=== PATIENT | female | born 1980 | race Caucasian/White ===

== ENCOUNTER 2018-05-20 13:51 | Outpatient (CLI) | payer MEDICAID ==
[2018-05-20 14:39] LABS: UR BACTERIA FEW /HPF (NONE SEEN); UR RBC 1 /HPF (0-5); UR SQUAMOUS EPITHELIAL CELL MODERATE /HPF (FEW); UR WBC 3 /HPF (0-5)
[2018-05-20 14:59] LABS: ADD UMIC YES; UR ASCORBIC ACID NEGATIVE (NEGATIVE); UR BILIRUBIN (Dip) NEGATIVE (NEGATIVE); UR BLOOD (Dip) NEGATIVE (NEGATIVE); UR CLARITY SLIGHTLY CLOUDY (CLEAR); UR COLOR YELLOW (YELLOW); UR GLUCOSE (Dip) NEGATIVE (NEGATIVE); UR KETONES (Dip) NEGATIVE (NEGATIVE); UR LEUKOCYTE ESTERASE (Dip) TRACE Leu/ul (NEGATIVE); UR NITRITE (Dip) NEGATIVE (NEGATIVE); UR SPECIFIC GRAVITY (Dip) 1.006 (1.003-1.030); UR TOTAL PROTEIN (Dip) NEGATIVE (NEGATIVE); UR UROBILINOGEN (Dip) NEGATIVE (NEGATIVE)
[2018-05-20 15:12] LABS: ADD MAN DIFF? NO
[2018-05-20 15:19] LABS: WHITE BLOOD COUNT 5.6 10^3/ul (4.8-10.8)
[2018-05-20 15:19] LABS: BASOPHILS % 0.7 % (0.0-2.0); EOSINOPHILS % 0.4 % (0.0-7.0); HEMATOCRIT 36.6 % (37.0-47.0); HEMOGLOBIN 12.4 g/dl (12.0-16.0); LYMPHOCYTES # 0.8 10^3/ul (0.8-2.9); LYMPHOCYTES % 14.2 % (15.0-51.0); MEAN CORPUSCULAR HGB CONC 33.9 g/dl (32.0-37.0); MEAN CORPUSCULAR VOLUME 91.5 fl (82.0-101.0); MEAN PLATELET VOLUME 10.5 fl (7.4-10.4); MONOCYTE # 0.5 10^3/ul (0.3-0.9); MONOCYTES % 8.9 % (0.0-11.0); NEUTROPHIL # 4.2 10^3/ul (1.6-7.5); NEUTROPHILS % 74.6 % (39.0-77.0); PLATELET COUNT 209 10^3/UL (140-415); RED CELL DISTRIBUTION WIDTH 13.2 % (11.5-14.5)
[2018-05-20 15:36] LABS: ALANINE AMINOTRANSFERASE 90 IU/L (13-69); ALBUMIN 3.5 g/dl (3.3-4.9); ALBUMIN/GLOBULIN RATIO 1.09; ALKALINE PHOSPHATASE 145 IU/L (42-121); ANION GAP 13 (8-16); ASPARTATE AMINO TRANSFERASE 66 IU/L (15-46); BILIRUBIN,INDIRECT 0.4 mg/dl (0-1.1); BILIRUBIN,TOTAL 0.4 mg/dl (0.2-1.3); BLOOD UREA NITROGEN 4 mg/dl (7-20); CALCIUM 8.7 mg/dl (8.4-10.2); CARBON DIOXIDE 19 mmol/L (21-31); CHLORIDE 111 mmol/L (97-110); CREATININE 0.41 mg/dl (0.44-1.00); GLUCOSE 80 mg/dl (70-220); POTASSIUM 3.6 mmol/L (3.5-5.1); SODIUM 139 mmol/L (135-144); TOTAL PROTEIN 6.7 g/dl (6.1-8.1)
[2018-05-20] MEDS ORDERED: TERBUTALINE 1 ML (16:18)
[2018-05-20] MEDS: TERBUTALINE 1 MG/ML INJ SC ×2 (16:32→17:21)
[2018-05-27 17:16] LABS: CHENODEOXYCHOLIC ACID 2.2 umol/L (< OR = 3.1); CHOLIC ACID 2.2 umol/L (< OR = 1.8); DEOXYCHOLIC ACID 0.5 umol/L (< OR = 2.4)
== END 2018-05-20 18:05 | disposition home or self-care (01) ==
LOC: OBT 13:51 → L-D 13:51 → OBT 18:05
DX: O28.8 Other abnormal findings on antenatal screening of mother (principal); O09.523 Supervision of elderly multigravida, third trimester; Z3A.34 34 weeks gestation of pregnancy
CPT/HCPCS: 76817; 76818; 80053; 81001; 83789; 85025; 87086; 96372

== ENCOUNTER 2018-05-23 11:02 | Inpatient (IN) | payer MEDICAID ==
[2018-05-23 11:40] LABS: ADD MAN DIFF? NO
[2018-05-23 11:46] LABS: WHITE BLOOD COUNT 5.4 10^3/ul (4.8-10.8)
[2018-05-23 11:46] LABS: BASOPHILS % 0.4 % (0.0-2.0); EOSINOPHILS % 0.2 % (0.0-7.0); HEMATOCRIT 38.9 % (37.0-47.0); HEMOGLOBIN 13.1 g/dl (12.0-16.0); LYMPHOCYTES # 0.7 10^3/ul (0.8-2.9); MEAN CORPUSCULAR HEMOGLOBIN 30.8 pg (29.0-33.0); MEAN CORPUSCULAR HGB CONC 33.7 g/dl (32.0-37.0); MEAN CORPUSCULAR VOLUME 91.3 fl (82.0-101.0); MEAN PLATELET VOLUME 10.6 fl (7.4-10.4); MONOCYTE # 0.4 10^3/ul (0.3-0.9); NEUTROPHIL # 4.2 10^3/ul (1.6-7.5); NEUTROPHILS % 78.3 % (39.0-77.0); PLATELET COUNT 243 10^3/UL (140-415); RED BLOOD COUNT 4.26 10^6/ul (4.20-5.40); RED CELL DISTRIBUTION WIDTH 13.2 % (11.5-14.5)
[2018-05-23 12:08] LABS: ALANINE AMINOTRANSFERASE 181 IU/L (13-69); ALBUMIN 3.8 g/dl (3.3-4.9); ALBUMIN/GLOBULIN RATIO 1.22; ALKALINE PHOSPHATASE 155 IU/L (42-121); ANION GAP 11 (8-16); ASPARTATE AMINO TRANSFERASE 111 IU/L (15-46); BILIRUBIN,INDIRECT 0.3 mg/dl (0-1.1); BILIRUBIN,TOTAL 0.3 mg/dl (0.2-1.3); BLOOD UREA NITROGEN 4 mg/dl (7-20); CALCIUM 9.6 mg/dl (8.4-10.2); CARBON DIOXIDE 22 mmol/L (21-31); CHLORIDE 110 mmol/L (97-110); CREATININE 0.46 mg/dl (0.44-1.00); GLUCOSE 102 mg/dl (70-220); POTASSIUM 3.9 mmol/L (3.5-5.1); SODIUM 139 mmol/L (135-144); TOTAL PROTEIN 6.9 g/dl (6.1-8.1)
[2018-05-23] MEDS ORDERED: DOCUSATE SODIUM 100 MG CAP PO (17:30)
[2018-05-23] MEDS ORDERED: ACETAMINOPHEN 325 MG TAB PO (17:30)
[2018-05-23] MEDS ORDERED: AL HYDROX/MG HYDROX/SIMETH 30 ML CUP PO (17:30)
[2018-05-24] MEDS: FERROUS SULFATE (EC) 325 MG TAB PO (09:00)
[2018-05-24] MEDS: PRENATAL VITAMIN PO (09:00)
[2018-05-24 09:14] LABS: ADD MAN DIFF? NO
[2018-05-24 09:23] LABS: WHITE BLOOD COUNT 5.1 10^3/ul (4.8-10.8)
[2018-05-24 09:23] LABS: BASOPHILS % 0.6 % (0.0-2.0); EOSINOPHILS # 0.1 10^3/ul (0.0-0.5); HEMATOCRIT 39.6 % (37.0-47.0); HEMOGLOBIN 13.2 g/dl (12.0-16.0); LYMPHOCYTES # 0.8 10^3/ul (0.8-2.9); MEAN CORPUSCULAR HEMOGLOBIN 30.8 pg (29.0-33.0); MEAN CORPUSCULAR HGB CONC 33.3 g/dl (32.0-37.0); MEAN CORPUSCULAR VOLUME 92.5 fl (82.0-101.0); MEAN PLATELET VOLUME 10.7 fl (7.4-10.4); MONOCYTE # 0.4 10^3/ul (0.3-0.9); MONOCYTES % 7.8 % (0.0-11.0); NEUTROPHIL # 3.8 10^3/ul (1.6-7.5); NEUTROPHILS % 74.6 % (39.0-77.0); PLATELET COUNT 219 10^3/UL (140-415); RED BLOOD COUNT 4.28 10^6/ul (4.20-5.40); RED CELL DISTRIBUTION WIDTH 13.3 % (11.5-14.5)
[2018-05-24 09:37] LABS: LIPASE 95 U/L (23-300)
[2018-05-24 09:39] LABS: AMYLASE 58 U/L (11-123)
[2018-05-24 09:39] LABS: ALANINE AMINOTRANSFERASE 232 IU/L (13-69); ALBUMIN 3.8 g/dl (3.3-4.9); ALBUMIN/GLOBULIN RATIO 1.05; ALKALINE PHOSPHATASE 159 IU/L (42-121); ANION GAP 16 (8-16); ASPARTATE AMINO TRANSFERASE 137 IU/L (15-46); BILIRUBIN,INDIRECT 0.5 mg/dl (0-1.1); BILIRUBIN,TOTAL 0.5 mg/dl (0.2-1.3); BLOOD UREA NITROGEN 4 mg/dl (7-20); CALCIUM 9.3 mg/dl (8.4-10.2); CARBON DIOXIDE 22 mmol/L (21-31); CHLORIDE 105 mmol/L (97-110); CREATININE 0.49 mg/dl (0.44-1.00); GLUCOSE 87 mg/dl (70-220); POTASSIUM 3.7 mmol/L (3.5-5.1); SODIUM 139 mmol/L (135-144); TOTAL PROTEIN 7.4 g/dl (6.1-8.1)
[2018-05-24 10:47] LABS: HEPATITIS B SURFACE ANTIGEN NEGATIVE (NEGATIVE)
[2018-05-24 11:04] LABS: HEPATITIS C VIRAL ANTIBODY NEGATIVE (NEGATIVE)
[2018-05-24] MEDS: BETAMET NA PHOS/AC(6 MG/ML) 5ML INJ IM (11:33)
[2018-05-24] MEDS: URSODIOL 300 MG CAP PO ×2 (12:10→21:18)
[2018-05-24 16:43] LABS: COLLECTION PERIOD 24 hrs
[2018-05-24 17:00] LABS: CREATININE,URINE RANDOM 31.04 mg/dl (20-320)
[2018-05-24 17:05] LABS: COLLECTION PERIOD 24 hrs; CREATININE CLEARANCE 140.8 mls/min (84.0-162.0); SCRET 0.49 mg/dl (0.44-1.00); VOLUME 3200 ml/24hrs; VOLUME 3200 mls
[2018-05-25 08:28] LABS: ALANINE AMINOTRANSFERASE 282 IU/L (13-69); ALBUMIN 3.5 g/dl (3.3-4.9); ALKALINE PHOSPHATASE 152 IU/L (42-121); ASPARTATE AMINO TRANSFERASE 175 IU/L (15-46); BILIRUBIN,INDIRECT 0.4 mg/dl (0-1.1); BILIRUBIN,TOTAL 0.4 mg/dl (0.2-1.3); TOTAL PROTEIN 6.5 g/dl (6.1-8.1)
[2018-05-25] MEDS: PRENATAL VITAMIN PO (08:32)
[2018-05-25] MEDS: FERROUS SULFATE (EC) 325 MG TAB PO (08:32)
[2018-05-25] MEDS: URSODIOL 300 MG CAP PO ×3 (08:32→21:25)
[2018-05-25] MEDS: BETAMET NA PHOS/AC(6 MG/ML) 5ML INJ IM (11:07)
[2018-05-26] MEDS: DIPHENHYDRAMINE 25 MG CAP PO (01:46)
[2018-05-26] MEDS: URSODIOL 300 MG CAP PO ×3 (09:27→22:13)
[2018-05-26] MEDS: PRENATAL VITAMIN PO (09:27)
[2018-05-26] MEDS: FERROUS SULFATE (EC) 325 MG TAB PO (09:28)
[2018-05-27] MEDS: FERROUS SULFATE (EC) 325 MG TAB PO (09:48)
[2018-05-27] MEDS: PRENATAL VITAMIN PO (09:48)
[2018-05-27] MEDS: URSODIOL 300 MG CAP PO ×3 (09:48→21:23)
[2018-05-27 11:03] LABS: ALANINE AMINOTRANSFERASE 327 IU/L (13-69); ALBUMIN 3.7 g/dl (3.3-4.9); ALKALINE PHOSPHATASE 149 IU/L (42-121); ASPARTATE AMINO TRANSFERASE 158 IU/L (15-46); BILIRUBIN,INDIRECT 0.2 mg/dl (0-1.1); BILIRUBIN,TOTAL 0.2 mg/dl (0.2-1.3); TOTAL PROTEIN 6.9 g/dl (6.1-8.1)
[2018-05-27 15:01] LABS: CHENODEOXYCHOLIC ACID 4.7 umol/L (< OR = 3.1); CHOLIC ACID 11.6 umol/L (< OR = 1.8); DEOXYCHOLIC ACID 3.4 umol/L (< OR = 2.4); TOTAL BILE ACIDS 19.7 umol/L (< OR = 6.8)
[2018-05-27 15:46] LABS: HEPATITIS B DELTA ANTIBODY NEGATIVE
[2018-05-28 08:13] LABS: ALANINE AMINOTRANSFERASE 315 IU/L (13-69); ALBUMIN 3.8 g/dl (3.3-4.9); ALKALINE PHOSPHATASE 153 IU/L (42-121); ASPARTATE AMINO TRANSFERASE 135 IU/L (15-46); BILIRUBIN,INDIRECT 0.3 mg/dl (0-1.1); BILIRUBIN,TOTAL 0.3 mg/dl (0.2-1.3); TOTAL PROTEIN 7.1 g/dl (6.1-8.1)
[2018-05-28] MEDS: URSODIOL 300 MG CAP PO ×3 (09:24→21:21)
[2018-05-28] MEDS: PRENATAL VITAMIN PO (09:24)
[2018-05-28] MEDS: FERROUS SULFATE (EC) 325 MG TAB PO (09:24)
[2018-05-28] MEDS ORDERED: LACTATED RINGER'S 1,000 ML IV (22:43)
[2018-05-28] MEDS ORDERED: BUTORPHANOL 2 MG INJ IV (23:00)
[2018-05-28] MEDS ORDERED: METHYLERGONOVINE 0.2 MG INJ IM (23:00)
[2018-05-28] MEDS ORDERED: CARBOPROST 250 MCG INJ IM (23:00)
[2018-05-28] MEDS ORDERED: MISOPROSTOL 200 MCG TAB PR (23:00)
[2018-05-28] MEDS ORDERED: IBUPROFEN 600 MG TAB PO (23:00)
[2018-05-28] MEDS ORDERED: OXYTOCIN 30 UNITS/LR 500 ML IV (23:00)
[2018-05-28] MEDS ORDERED: LIDOCAINE 1% (MPF) 30 ML INJ INJ (23:00)
[2018-05-28] MEDS: LACTATED RINGER'S 1,000 ML IV* (23:12)
[2018-05-28 23:24] LABS: ADD MAN DIFF? NO
[2018-05-28] MEDS: DINOPROSTONE 10 MG VAG SUPP VAG (23:26)
[2018-05-28] MEDS: AMPICILLIN 2 GM/NS (PMX) 100 ML IV (23:26)
[2018-05-28 23:34] LABS: BASOPHILS % 0.3 % (0.0-2.0); EOSINOPHILS # 0.1 10^3/ul (0.0-0.5); EOSINOPHILS % 0.7 % (0.0-7.0); HEMATOCRIT 39.6 % (37.0-47.0); HEMOGLOBIN 13.4 g/dl (12.0-16.0); LYMPHOCYTES % 14.4 % (15.0-51.0); MEAN CORPUSCULAR HEMOGLOBIN 30.8 pg (29.0-33.0); MEAN CORPUSCULAR HGB CONC 33.8 g/dl (32.0-37.0); MEAN PLATELET VOLUME 10.6 fl (7.4-10.4); MONOCYTE # 0.6 10^3/ul (0.3-0.9); MONOCYTES % 9.1 % (0.0-11.0); NEUTROPHIL # 5.2 10^3/ul (1.6-7.5); NEUTROPHILS % 73.9 % (39.0-77.0); PLATELET COUNT 256 10^3/UL (140-415); RED BLOOD COUNT 4.35 10^6/ul (4.20-5.40); RED CELL DISTRIBUTION WIDTH 13.1 % (11.5-14.5)
[2018-05-28 23:44] LABS: INR 0.86; PROTIME 11.8 Sec (11.9-14.9); PT RATIO 0.9
[2018-05-29] MEDS: AMPICILLIN 1 GM/NS (PMX) 50 ML IV ×2 (02:38→06:41)
[2018-05-29] MEDS: LACTATED RINGER'S 1,000 ML IV* ×4 (05:45→16:09)
[2018-05-29] MEDS ORDERED: FENTAnyl 2MCG/ML-ROPIV 0.2% 100 ML (06:27)
[2018-05-29 06:39] LABS: ALANINE AMINOTRANSFERASE 273 IU/L (13-69); ALBUMIN 3.8 g/dl (3.3-4.9); ALKALINE PHOSPHATASE 159 IU/L (42-121); ASPARTATE AMINO TRANSFERASE 103 IU/L (15-46); BILIRUBIN,INDIRECT 0.4 mg/dl (0-1.1); BILIRUBIN,TOTAL 0.4 mg/dl (0.2-1.3); TOTAL PROTEIN 7.1 g/dl (6.1-8.1)
[2018-05-29] MEDS ORDERED: NALOXONE (0.4 MG/ML) INJ IV (07:00)
[2018-05-29] MEDS ORDERED: FENTAnyl 2MCG/ML-ROPIV 0.2% 100 ML BAG EPI (07:00)
[2018-05-29] MEDS: OXYTOCIN 30 UNITS/LR 500 ML IV ×2 (07:50→08:03)
[2018-05-29] MEDS: DEXTROSE 5%-LR 1,000 ML IV ×2 (08:09→16:09)
[2018-05-29] MEDS ORDERED: DIBUCAINE 1% 30 GM OINT PR (08:30)
[2018-05-29] MEDS ORDERED: METHYLERGONOVINE 0.2 MG INJ IM (08:30)
[2018-05-29] MEDS ORDERED: ZOLPIDEM 5 MG TAB PO (08:30)
[2018-05-29] MEDS ORDERED: SENNA/DOCUSATE NA (8.6MG/50MG) TAB PO (08:30)
[2018-05-29] MEDS ORDERED: MISOPROSTOL 200 MCG TAB PR (08:30)
[2018-05-29] MEDS ORDERED: OXYCODONE/ASPIRIN (4.88/325) TAB PO (08:30)
[2018-05-29] MEDS ORDERED: ACETAMINOPHEN 325 MG TAB PO (08:30)
[2018-05-29] MEDS ORDERED: BENZOCAINE 20% 56 ML SPRAY TOP (08:30)
[2018-05-29] MEDS ORDERED: ONDANSETRON 4 MG INJ IV (08:30)
[2018-05-29] MEDS ORDERED: CARBOPROST 250 MCG INJ IM (08:30)
[2018-05-29] MEDS ORDERED: OXYTOCIN 30 UNITS/LR 500 ML IV (08:30)
[2018-05-29] MEDS ORDERED: WITCH HAZEL/GLYCERIN PAD PR (08:30)
[2018-05-29] MEDS: LANOLIN 7 GM TUBE TOP (11:04)
[2018-05-29] MEDS: DIPHENHYDRAMINE 50 MG INJ IV (11:04)
[2018-05-29] MEDS: URSODIOL 300 MG CAP PO ×3 (11:09→21:46)
[2018-05-29] MEDS: IBUPROFEN 600 MG TAB PO ×2 (12:32→17:22)
[2018-05-29 15:38] LABS: RAPID PLASMA REAGIN NONREACTIVE (NR)
[2018-05-30] MEDS: LACTATED RINGER'S 1,000 ML IV* (00:09)
[2018-05-30] MEDS: DEXTROSE 5%-LR 1,000 ML IV (00:09)
[2018-05-30] MEDS: IBUPROFEN 600 MG TAB PO ×4 (00:27→18:01)
[2018-05-30] MEDS: URSODIOL 300 MG CAP PO ×3 (09:09→22:34)
[2018-05-30 11:00] LABS: ADD MAN DIFF? NO; BASOPHILS % 0.6 % (0.0-2.0); EOSINOPHILS % 0.6 % (0.0-7.0); HEMATOCRIT 40.1 % (37.0-47.0); HEMOGLOBIN 13.5 g/dl (12.0-16.0); LYMPHOCYTES # 1.3 10^3/ul (0.8-2.9); MEAN CORPUSCULAR HEMOGLOBIN 31.3 pg (29.0-33.0); MEAN CORPUSCULAR HGB CONC 33.7 g/dl (32.0-37.0); MEAN CORPUSCULAR VOLUME 92.8 fl (82.0-101.0); MEAN PLATELET VOLUME 10.5 fl (7.4-10.4); MONOCYTE # 0.6 10^3/ul (0.3-0.9); MONOCYTES % 8.2 % (0.0-11.0); NEUTROPHILS % 71.6 % (39.0-77.0); PLATELET COUNT 241 10^3/UL (140-415); RED BLOOD COUNT 4.32 10^6/ul (4.20-5.40); RED CELL DISTRIBUTION WIDTH 13.1 % (11.5-14.5)
[2018-05-31] MEDS: IBUPROFEN 600 MG TAB PO ×3 (00:17→12:00)
[2018-05-31] MEDS: MEASLES,MUMPS,RUBELLA VACCINE INJ SC* (09:00)
[2018-05-31] MEDS: DIPHTH/TET/ACEL PERTUSS (ADULT) 0.5 ML VIAL IM* (09:00)
[2018-05-31] MEDS: URSODIOL 300 MG CAP PO ×2 (09:40→13:12)
== END 2018-05-31 13:45 | disposition home or self-care (01) | DRG 775 ==
LOC: OBT 11:02 → L-D 05-28 22:33 → PP1 05-29 10:33 → L-D 11:02 → OBT 17:31 → PP1 17:35 → L-D 18:49 → PP1 19:38
PROC: 10E0XZZ Delivery of Products of Conception, External Approach (ICD-10-PCS; principal; 2018-05-29 10:45)
PROC: 3E033VJ Introduction of Other Hormone into Peripheral Vein, Percutaneous Approach (ICD-10-PCS; 2018-05-29 10:45)
DX: O60.14X0 Preterm labor third trimester with preterm delivery third trimester, not applicable or unspecified (principal); K83.1 Obstruction of bile duct; O26.62 Liver and biliary tract disorders in childbirth; O99.62 Diseases of the digestive system complicating childbirth; K80.20 Calculus of gallbladder without cholecystitis without obstruction; Z3A.36 36 weeks gestation of pregnancy; Z37.0 Single live birth
CPT/HCPCS: 62319; 76705; 76818; 80053; 80076; 82150; 82575; 83690; 83789; 84156; 85025; 85610; 85730; 86592; 86692; 86709; 86803; 86850; 86900; 86901; 87081; 87340